=== PATIENT | male | born 1985 | race Two or more races ===

== ENCOUNTER 2022-03-05 23:01 | Emergency (ER) | payer OTHER ==
[~2022-03-05] VITALS: Ht 175.3 cm; Wt 88.6 kg
[2022-03-06 03:42] VITALS: BP 122/87
[2022-03-06 05:42] LABS: COVID AG,FIA SOURCE NASAL SWAB
== END 2022-03-06 06:21 | disposition home or self-care (01) ==
LOC: EMS 23:05
DX: R45.851 Suicidal ideations (principal); F25.9 Schizoaffective disorder, unspecified; F41.9 Anxiety disorder, unspecified; F31.9 Bipolar disorder, unspecified; F17.210 Nicotine dependence, cigarettes, uncomplicated; F15.90 Other stimulant use, unspecified, uncomplicated; Z98.890 Other specified postprocedural states; Z20.822 Contact with and (suspected) exposure to COVID-19
CPT/HCPCS: 99283